=== PATIENT | male | born 1980 | race Caucasian/White ===

== ENCOUNTER 2017-04-17 09:52 | Emergency (ER) | payer OTHER ==
[2017-04-17 10:04] VITALS: BP 114/53; PULSE 71; TEMP 98.2; BMI 28.2
[2017-04-17] MEDS ORDERED: predniSONE 20 MG TABLET (UD) PO ONE (10:30)
[2017-04-17] MEDS ORDERED: ALBUTEROL SO4 2.5/IPRATROPIUM 0.5 INH SOL 3 ML VIAL.NEB. NEB ONE ×2 (10:30→10:51)
--- NOTE | 2017-04-17 10:36 | PDOC ---
History of Present Illness - General Chief Complaint: Cold Symptoms Stated Complaint: CHEST PAIN Time Seen by Provider: 04/17/17 10:15 History Source: Patient Exam Limitations: No Limitations - History of Present Illness Initial Comments: 04/17/17 10:32 My chief complaint: Productive cough, chest discomfort, nasal congestion, wheezing History of present illness: Patient is a 36-year-old male with a history of asthma here today with a productive cough of greenish phlegm with chest discomfort with coughing, wheezing worse at night when lying down daily and shortness of breath intermittently with ambulation and nasal congestion. Patient also feels as if his ears are clogged with out any pain. Patient reports having a fever a few days ago. Patient reports having gone to urgent care and received and nasal spray and albuterol pump however symptoms continue and have worsened. Patient reports that is 5-year-old son was sick with an upper respiratory infection also. He has not had his influenza vaccine. He denies any recent travel. Patient denies any hospitalizations due to his asthma. 04/17/17 10:48 04/17/17 10:48 Timing/Duration: 1 week, getting worse Severity: moderate Associated Symptoms: reports: chest pain (with coughing ), cough (productive greenish phelgm ), shortness of breath (with ambulation ), other (nasal congestion) Past History - Past Medical History Allergies/Adverse Reactions: Allergies Allergy/AdvReac Type Severity Reaction Status Date / Time No Known Allergies Allergy Verified 04/17/17 09:57 Home Medications: Ambulatory Orders Azithromycin [Zithromax 250mg Tablets -] 250 mg PO UTDICT #6 tab 04/17/17 Fluticasone/Salmeterol [Advair Hfa 115-21 Mcg Inhaler] 1 inh PO BID #1 inhaler MDD 2 04/17/17 Prednisone [Deltasone] 20 mg PO BID #8 tablet 04/17/17 Asthma: Yes - Suicide/Smoking/Psychosocial Hx Smoking Status: Yes Smoking History: Current every day smoker Number of Cigarettes Smoked Daily: 1 Cigars Per Day: 0 Information on smoking cessation initiated: No 'Breaking Loose' booklet given: 04/17/17 Hx Alcohol Use: No Drug/Substance Use Hx: Yes (Marijuana) Substance Use Type: Marijuana Review of Systems - Review of Systems Able to Perform ROS?: Yes Constitutional: No: Symptoms Reported HEENTM: Yes: Nose Congestion, Other (ears clogged b/l ) Respiratory: Yes: Productive cough (greenish phlegm) Cardiac (ROS): Yes: Chest Pain (with coughing ) ABD/GI: No: Symptoms Reported : No: Symptoms Reported Musculoskeletal: No: Symptoms Reported Integumentary: No: Symptoms Reported Neurological: No: Symptoms reported *Physical Exam - Vital Signs Last Vital Signs Temp Pulse Resp BP Pulse Ox 98.2 F 71 22 114/53 100 04/17/17 09:58 04/17/17 09:58 04/17/17 09:58 04/17/17 09:58 04/17/17 09:58 - Physical Exam General Appearance: Yes: Appropriately Dressed HEENT: positive: TMs Normal, Nasal Congestion, Hearing Grossly Normal. negative : Pharyngeal Erythema, Tonsillar Exudate, Tonsillar Erythema, Rhinorrhea, Sinus Tenderness Neck: negative: Lymphadenopathy (R), Lymphadenopathy (L) Respiratory/Chest: positive: Chest Tender, Lungs Clear, Wheezing (left lower expiratory wheeze ). negative: Normal Breath Sounds, Respiratory Distress Cardiovascular: positive: Regular Rhythm, Regular Rate, S1, S2 Integumentary: positive: Normal Color Neurologic: positive: Alert, Normal Response, Responsive Heart Score/ECG Review - ECG Intrepretation Rhythm: Regular Rhythm - P and MI Comment:: 04/17/17 10:51 reviewed by Medical Decision Making - Medical Decision Making 04/17/17 10:35 Patient is a 36-year-old male with a history of asthma here today with a productive cough of greenish phlegm with chest discomfort with coughing, wheezing worse at night when lying down daily and shortness of breath intermittently with ambulation and nasal congestion. Patient also feels as if his ears are clogged with out any pain. Patient reports having a fever a few days ago. Patient reports having gone to urgent care and received and nasal spray and albuterol pump however symptoms continue and have worsened. Patient reports that is 5-year-old son was sick with an upper respiratory infection also. He has not had his influenza vaccine. He denies any recent travel. Patient denies any hospitalizations due to his asthma. asthma exacerbation r/o infiltrate PLAN: EKG NSR xray chest PA/lateral no infiltrate noted per Dr. Laxmi becker now prednisone 40 mg po now than 20 mg bid for following 4 days azithromycin 250 mg 2 tabs today than one tab daily for following 4 days advair 113/21 mcg 1 inhale bid 04/17/17 11:34 04/17/17 11:39 04/17/17 11:42 lungs cTa b/l feeling better *DC/Admit/Observation/Transfer Diagnosis at time of Disposition: Asthmatic bronchitis with exacerbation Qualifiers: Asthma severity: unspecified severity Asthma persistence: unspecified Qualified Code(s): J45.901 - Unspecified asthma with (acute) exacerbation - Discharge Dispostion Disposition: HOME Condition at time of disposition: Stable - Prescriptions Prescriptions: Fluticasone/Salmeterol [Advair Hfa 115-21 Mcg Inhaler] 1 inh PO BID #1 inhaler MDD 2 Prednisone [Deltasone] 20 mg PO BID #8 tablet Azithromycin [Zithromax 250mg Tablets -] 250 mg PO UTDICT #6 tab - Referrals Referrals: Duarte Wesley MD [Primary Care Provider] - - Patient Instructions Additional Instructions: Follow-up with your primary care provider within the next few days Return to emergency room if symptoms worsen any difficulty breathing or any new symptoms develop Drink a lot a fluids and rest Patient voiced understanding of discharge instructions and all questions were answered Thank you for choosing [facility] emergency room for your medical care today
[2017-04-17] MEDS ORDERED: predniSONE 20 MG TABLET (UD) ONE (10:50)
--- NOTE | 2017-04-18 09:37 | EKG ---
Test Reason : Blood Pressure : / mmHG Vent. Rate : 064 BPM Atrial Rate : 064 BPM P-R Int : 156 ms QRS Dur : 106 ms QT Int : 394 ms P-R-T Axes : 046 081 031 degrees QTc Int : 406 ms NORMAL SINUS RHYTHM NORMAL ECG NO PREVIOUS ECGS AVAILABLE Confirmed by ARLENE BROOKS, MICHELLE ([id number]) on 04/18/2017 9:36:58 AM Referred By: Confirmed By:MICHELLE JACOBS MD
== END 2017-04-17 11:46 | disposition home or self-care (01) ==
LOC: JERFT 09:52
PROC: 3E0F7GC Introduction of Other Therapeutic Substance into Respiratory Tract, Via Natural or Artificial Opening (ICD-10-PCS; principal; 2017-04-17)
PROC: 3E0233Z Introduction of Anti-inflammatory into Muscle, Percutaneous Approach (ICD-10-PCS; 2017-04-17)
DX: J45.901 Unspecified asthma with (acute) exacerbation (principal)
CPT/HCPCS: 71020-TC; 93005; 93010; 99281-25

== ENCOUNTER 2019-07-25 10:08 | Emergency (ER) | payer OTHER ==
[2019-07-25 10:42] VITALS: BP 141/74; PULSE 88; TEMP 98.7; BMI 30.7
--- NOTE | 2019-07-25 11:16 | PDOC ---
History of Present Illness - General Chief Complaint: Headache Stated Complaint: HEAD INJURY Time Seen by Provider: 07/25/19 11:14 History Source: Patient Exam Limitations: No Limitations - History of Present Illness Initial Comments: 07/25/19 12:03 39-year-old male presents to ED with complaints of status post fall in the bathtub last night. Patient states he slipped on the soap and hit the back of his head. Patient states no LOC. patient states fell at around 11 PM after drinking while watching the Super Bowl. Patient today states he feels slightly dizzy has occipital headache and feels generally weak. Patient states also history of anxiety which she states feels may be causing him to feel slightly anxious. Patient denies recent drug use, blood thinner usage, or medical history. Patient denies visual changes, nausea, neck pain, or chest pain. 07/25/19 12:37 Timing/Duration: reports: 4-6 hours Severity: Yes: mild Associated Symptoms: reports: weakness, other (Headache) Past History - Travel Traveled outside of the country in the last 30 days: No Close contact w/someone who was outside of country & ill: No - Past Medical History Allergies/Adverse Reactions: Allergies Allergy/AdvReac Type Severity Reaction Status Date / Time No Known Allergies Allergy Verified 04/17/17 09:57 Home Medications: Ambulatory Orders Azithromycin [Zithromax 250mg Tablets -] 250 mg PO UTDICT #6 tab 04/17/17 Fluticasone/Salmeterol [Advair Hfa 115-21 Mcg Inhaler] 1 inh PO BID #1 inhaler MDD 2 04/17/17 predniSONE [Deltasone] 20 mg PO BID #8 tablet 04/17/17 Asthma: Yes COPD: No - Immunization History Immunization Up to Date: Yes - Psycho Social/Smoking Cessation Hx Smoking Status: Yes Smoking History: Never smoked Have you smoked in the past 12 months: No Number of Cigarettes Smoked Daily: 1 Cigars Per Day: 0 Information on smoking cessation initiated: No 'Breaking Loose' booklet given: 04/17/17 Hx Alcohol Use: No Drug/Substance Use Hx: No Substance Use Type: Marijuana Patient Lives Alone: No Lives with/in: spouse/SO Review of Systems - Review of Systems Able to Perform ROS?: Yes Constitutional: No: Symptoms Reported HEENTM: No: Symptoms Reported Respiratory: No: Symptoms reported Cardiac (ROS): Yes: Lightheadedness ABD/GI: No: Symptoms Reported : No: Symptoms Reported Musculoskeletal: No: Symptoms Reported Integumentary: No: Symptoms Reported Neurological: Yes: Headache, Weakness, Dizziness Hematologic/Lymphatic: No: Symptoms Reported *Physical Exam - Vital Signs Last Vital Signs Temp Pulse Resp BP Pulse Ox 98.7 F 88 17 141/74 99 07/25/19 10:39 07/25/19 10:39 07/25/19 10:39 07/25/19 10:39 07/25/19 10:39 - Physical Exam General Appearance: Yes: Nourished, Appropriately Dressed. No: Apparent Distress HEENT: positive: EOMI, LENA, TMs Normal (No hemotympanum), Pharynx Normal. negative: Pale Conjunctivae Neck: negative: Supple, Tender lateral, Tender midline Respiratory/Chest: positive: Lungs Clear, Normal Breath Sounds. negative: Respiratory Distress, Accessory Muscle Use Cardiovascular: positive: Regular Rhythm, Regular Rate. negative: Murmur Gastrointestinal/Abdominal: negative: Soft, Tenderness Integumentary: positive: Other (Small hematoma to the occipital region skin intact) Neurologic: positive: Fully Oriented, Alert, Motor Strength 5/5 (Ambulatory). negative: Normal Mood/Affect (Slightly anxious), Sensory Deficit ED Treatment Course - RADIOLOGY Radiology Studies Ordered: Category Date Time Status HEAD CT WITHOUT CONTRAST [CT] Stat CT Scan 07/25/19 11:15 Ordered Medical Decision Making - Medical Decision Making 07/25/19 12:08 Chief complaint: Patient status post slip and fall while in bathtub yesterday. Exam: Patient with small hematoma to the occipital region normal physical exam vital signs stable A&O x3. Plan: Head CT 07/25/19 12:[address] negative for acute pathology. Patient requesting to go home will discharge home with supportive care instructions for concussion. Discharge - Discharge Information Problems reviewed: Yes Clinical Impression/Diagnosis: Head injury Condition: Good Disposition: HOME - Follow up/Referral - Patient Discharge Instructions Patient Printed Discharge Instructions: DI for Closed Head Injury, DI for Concussion Additional Instructions: At this time I recommend drinking plenty of fluids, rest, taking Tylenol 975 mg every 6-8 hours for pain. I have also enclosed information in regards to concussion so that you may avoid concussion syndrome. So please read over and avoid reading fine print, watching TV, or contact sports for at least 7 days. - Post Discharge Activity
== END 2019-07-25 12:52 | disposition home or self-care (01) ==
LOC: JERFT 10:08
DX: S00.03XA Contusion of scalp, initial encounter (principal); S09.8XXA Other specified injuries of head, initial encounter; W18.2XXA Fall in (into) shower or empty bathtub, initial encounter; Y93.E1 Activity, personal bathing and showering; Y92.031 Bathroom in apartment as the place of occurrence of the external cause; Y99.8 Other external cause status; F41.9 Anxiety disorder, unspecified
CPT/HCPCS: 70450-TC; 99282-25

== ENCOUNTER 2019-08-12 03:37 | Emergency (ER) | payer OTHER ==
[2019-08-12 03:50] VITALS: BP 122/62; PULSE 90; TEMP 97.7; BMI 31.1
--- NOTE | 2019-08-12 05:43 | PDOC ---
Attending Attestation - Resident Resident Name: AdamMorgan - ED Attending Attestation I have performed the following: I have examined & evaluated the patient, The case was reviewed & discussed with the resident, I agree w/resident's findings & plan, Exceptions are as noted - HPI HPI: 08/18/19 23:14 See resident HPI - Physicial Exam PE: 08/18/19 23:14 Agree with exam as documented by resident - Medical Decision Making 08/18/19 23:15 39M pmh of asthma with sob, does not have rescue inhaler or other meds, no f/c, no sick contacts, no recent travel symptomatic tx re-eval symptomatically improved, no dyspnea or desat on ambulation dc with rx to pharmacy of choice f/u pcp
[2019-08-12] MEDS ORDERED: ALBUTEROL SO4 2.5/IPRATROPIUM 0.5 INH SOL 3 ML VIAL.NEB. NEB ONE ×2 (06:02→06:05)
--- NOTE | 2019-08-12 06:56 | PDOC ---
History of Present Illness - General Chief Complaint: Cold Symptoms Stated Complaint: FLU-LIKE SYMPTOMS History Source: Patient Exam Limitations: No Limitations - History of Present Illness Initial Comments: 39 yo male pmh asthma presents to the ED for worsening chest tightness and SOB. Pt states since being released from custodial 1 year ago, he has not had insurance and has not seen a Physician and has not had an albuterol rescue inhaler. Pt admits to worsening chest tightness and SOB similar to past asthma exacerbations. Denies F/C/N/V, recent travel, sick contacts, chest pain, abdominal pain, changes in bowel or bladder habits. Past History - Past Medical History Allergies/Adverse Reactions: Allergies Allergy/AdvReac Type Severity Reaction Status Date / Time No Known Allergies Allergy Verified 08/12/19 03:49 Home Medications: Ambulatory Orders Azithromycin [Zithromax 250mg Tablets -] 250 mg PO UTDICT #6 tab 04/17/17 Fluticasone/Salmeterol [Advair Hfa 115-21 Mcg Inhaler] 1 inh PO BID #1 inhaler MDD 2 04/17/17 predniSONE [Deltasone] 20 mg PO BID #8 tablet 04/17/17 Albuterol Sulfate 0.5% [Ventolin 0.5% Nebulizing Soln. -] 1 amp NEB Q4H #1 amp 08/12/19 Asthma: Yes COPD: No - Immunization History Immunization Up to Date: Yes - Psycho Social/Smoking Cessation Hx Smoking Status: Yes Smoking History: Unknown if ever smoked Have you smoked in the past 12 months: No Number of Cigarettes Smoked Daily: 1 Cigars Per Day: 0 Information on smoking cessation initiated: No 'Breaking Loose' booklet given: 04/17/17 Hx Alcohol Use: No Drug/Substance Use Hx: No Substance Use Type: Marijuana Review of Systems - Review of Systems Constitutional: Yes: See HPI HEENTM: Yes: See HPI Respiratory: Yes: See HPI Cardiac (ROS): Yes: See HPI ABD/GI: Yes: See HPI : Yes: See HPI Musculoskeletal: Yes: See HPI Integumentary: Yes: See HPI Neurological: Yes: See HPI *Physical Exam - Vital Signs Last Vital Signs Temp Pulse Resp BP Pulse Ox 97.7 F 90 18 122/62 98 08/12/19 03:49 08/12/19 03:49 08/12/19 03:49 08/12/19 03:49 08/12/19 03:49 - Physical Exam General Appearance: Yes: Nourished, Appropriately Dressed. No: Apparent Distress HEENT: positive: EOMI Neck: positive: Supple. negative: Carotid bruit Respiratory/Chest: positive: Wheezing (bibasilar). negative: Accessory Muscle Use, Rapid RR, Crackles, Rales, Rhonchi, Stridor Cardiovascular: positive: Regular Rhythm, Regular Rate, S1, S2. negative: Edema , JVD, Murmur Vascular Pulses: Dorsalis-Pedis (R): 4+, Doralis-Pedis (L): 4+ Gastrointestinal/Abdominal: positive: Flat, Soft. negative: Pulsatile Mass, Distended, Guarding, Rebound, Tenderness Musculoskeletal: negative: CVA Tenderness Extremity: positive: Normal Capillary Refill, Normal Inspection Integumentary: positive: Normal Color, Dry, Warm Neurologic: positive: Fully Oriented, Alert, Normal Mood/Affect, Normal Response ED Treatment Course - Medications Given in the ED: ED Medications Discontinued Medications Generic Name Dose Route Start Last Admin Trade Name Freq PRN Reason Stop Dose Admin Albuterol/Ipratropium 3 amp 08/12/19 06:05 08/12/19 06:10 Duoneb - NEB 08/12/19 06:06 3 amp ONCE ONE Administration Medical Decision Making - Medical Decision Making 39 yo male pmh asthma presents to the ED for worsening chest tightness and SOB. Pt states since being released from custodial 1 year ago, he has not had insurance and has not seen a Physician and has not had an albuterol rescue inhaler. Pt admits to worsening chest tightness and SOB similar to past asthma exacerbations. Denies F/C/N/V, recent travel, sick contacts, chest pain, abdominal pain, changes in bowel or bladder habits. vitals stable 3 duo nebs given, pt admits to significant improvement in his breathing Pt ambulates with pulse O2, 99% at rest and 99% during ambulation without tachypnea Pt safe for DC home with albuterol inhaler and PCP f/u pt agrees with and understands plan Discharge - Discharge Information Problems reviewed: Yes Clinical Impression/Diagnosis: Asthma Condition: Improved Disposition: HOME - Admission No - Additional Discharge Information Prescriptions: Albuterol Sulfate 0.5% [Ventolin 0.5% Nebulizing Soln. -] 1 amp NEB Q4H #1 amp - Follow up/Referral Referrals: Gabriele Frost MD [Primary Care Provider] - - Patient Discharge Instructions Patient Printed Discharge Instructions: DI for Asthma -- Adult Additional Instructions: Please see your Primary Doctor within the next 48 hours. Take the inhaler as prescribed to you every 4 hours. Return to the ER for new or concerning symptoms. Thank you - Post Discharge Activity
== END 2019-08-12 07:25 | disposition home or self-care (01) ==
LOC: JER 03:37
PROC: 3E0F7GC Introduction of Other Therapeutic Substance into Respiratory Tract, Via Natural or Artificial Opening (ICD-10-PCS; principal; 2019-08-12)
DX: J45.909 Unspecified asthma, uncomplicated (principal)
CPT/HCPCS: 94640; 99284-25

== ENCOUNTER 2022-02-08 08:47 | Emergency (ER) | payer OTHER ==
[2022-02-08 09:48] VITALS: BP 101/59; PULSE 90; RESP 18; TEMP 98.2; BMI 27.4
[2022-02-08 10:22] LABS: PH,URINE 6.5 (5.0-8.0); URINE APPEARANCE CLEAR; URINE BILIRUBIN NEGATIVE (NEGATIVE); URINE COLOR YELLOW; URINE GLUCOSE (UA) NEGATIVE (NEGATIVE); URINE KETONE NEGATIVE (NEGATIVE); URINE LEUK ESTERASE NEGATIVE (NEGATIVE); URINE NITRITE NEGATIVE (NEGATIVE); URINE PROTEIN NEGATIVE (NEGATIVE); URINE UROBILINOGEN 0.2 mg/dL (0.2-1.0)
== END 2022-02-08 11:10 | disposition home or self-care (01) ==
LOC: JER 08:47
DX: N43.3 Hydrocele, unspecified (principal)
CPT/HCPCS: 76870-TC; 81003; 87086; 99284-25

== ENCOUNTER 2022-06-28 19:12 | Emergency (ER) | payer OTHER ==
[2022-06-28 19:25] VITALS: BP 131/78; PULSE 76; RESP 18; TEMP 98.4; BMI 29.7
[2022-06-28] MEDS ORDERED: ACETAMINOPHEN 325 MG TABLET (FP) PO ONE (20:44)
[2022-06-28] MEDS ORDERED: ACETAMINOPHEN 325 MG TABLET (FP) ONE (20:58)
[2022-06-28 21:18] LABS: BASO % 0.7 % (0-2.0); EOS % 1.7 % (0-4.5); HEMATOCRIT 45.4 % (35.4-49); HEMOGLOBIN 15.4 GM/dL (11.7-16.9); LYMPH % 25.7 % (8-40); MCH 31.6 pg (25.7-33.7); MCHC 33.9 g/dl (32.0-35.9); MEAN CELL VOLUME 93.3 fl (80-96); MEAN PLT VOLUME 7.5 fl (7.5-11.1); MONO % 9.2 % (3.8-10.2); NEUT % 62.7 % (42.8-82.8); PLATELET COUNT 266 10^3/uL (134-434); RBC 4.87 M/mm3 (4.00-5.60); RDW 13.3 % (11.9-15.9); WHITE BLOOD COUNT 11.1 K/mm3 (4.0-10.0)
[2022-06-28 21:36] LABS: ALBUMIN 3.9 g/dl (3.4-5.0); BLOOD UREA NITROGEN 25.2 mg/dL (7-18)
[2022-06-28 21:39] LABS: CREATININE 1.3 mg/dL (0.55-1.3)
[2022-06-28 21:41] LABS: BILIRUBIN,TOTAL 0.6 mg/dL (0.2-1)
== END 2022-06-28 22:46 | disposition home or self-care (01) ==
LOC: JER 19:12
DX: R21 Rash and other nonspecific skin eruption (principal)
CPT/HCPCS: 36415; 80053; 85025; 86618; 99283-25

== ENCOUNTER 2023-04-05 22:50 | Emergency (ER) | payer OTHER ==
[2023-04-05 23:04] VITALS: BP 115/75; PULSE 90; RESP 18; TEMP 97.8; BMI 29.1
== END 2023-04-06 00:39 | disposition home or self-care (01) ==
LOC: JER 22:50
DX: R05.9 Cough, unspecified (principal); R09.81 Nasal congestion; R51.9 Headache, unspecified; R50.9 Fever, unspecified; R09.3 Abnormal sputum; R07.9 Chest pain, unspecified; J06.9 Acute upper respiratory infection, unspecified; B97.89 Other viral agents as the cause of diseases classified elsewhere; L73.9 Follicular disorder, unspecified; Z20.822 Contact with and (suspected) exposure to COVID-19
CPT/HCPCS: 0241U-QW; 99283-25

== ENCOUNTER 2023-12-19 01:35 | Emergency (ER) | payer OTHER ==
[2023-12-19 01:43] VITALS: BMI 27.9
[2023-12-19 07:29] VITALS: BP 107/72; PULSE 90; RESP 14; TEMP 97.8
== END 2023-12-19 06:40 | disposition home or self-care (01) ==
LOC: JER 01:35
DX: F10.920 Alcohol use, unspecified with intoxication, uncomplicated (principal); R11.2 Nausea with vomiting, unspecified; Y90.9 Presence of alcohol in blood, level not specified
CPT/HCPCS: 73110-TC-RT-FY; 73130-TC-RT-FY; 99283-25

== ENCOUNTER 2024-07-14 10:26 | Emergency (ER) | payer OTHER ==
[2024-07-14 11:37] VITALS: BP 123/77; PULSE 77; RESP 18; TEMP 98.8; BMI 30.2
[2024-07-14] MEDS ORDERED: ACETAMINOPHEN 325 MG TABLET (FP) ONE (12:18)
[2024-07-14] MEDS: ACETAMINOPHEN 325 MG TABLET (FP) PO ONE (12:19)
[2024-07-14] MEDS: ACETAMINOPHEN 1000 MG/100 ML BAG IVPB ONE (12:20)
== END 2024-07-14 13:06 | disposition home or self-care (01) ==
LOC: JER 10:26
DX: L53.8 Other specified erythematous conditions (principal); M25.512 Pain in left shoulder; M54.2 Cervicalgia; M54.9 Dorsalgia, unspecified; V49.50XA Passenger injured in collision with unspecified motor vehicles in traffic accident, initial encounter; Y92.410 Unspecified street and highway as the place of occurrence of the external cause
CPT/HCPCS: 99283-25